=== PATIENT | female | born 1940 | race Caucasian/White ===

== ENCOUNTER → 2020-09-25 | Outpatient (CLI) | payer OTHER | LOC: HYPER 10:25 | PROVIDERS: ATTEND Emergency Medicine | DX: S81.852A Open bite, left lower leg, initial encounter (principal); S81.832A Puncture wound without foreign body, left lower leg, initial encounter; D64.9 Anemia, unspecified; M81.0 Age-related osteoporosis without current pathological fracture; M35.00 Sjogren syndrome, unspecified; G61.0 Guillain-Barre syndrome; M50.021 Cervical disc disorder at C4-C5 level with myelopathy; M50.022 Cervical disc disorder at C5-C6 level with myelopathy; E21.3 Hyperparathyroidism, unspecified; N18.32 Chronic kidney disease, stage 3b; I50.9 Heart failure, unspecified; M19.90 Unspecified osteoarthritis, unspecified site; Z98.49 Cataract extraction status, unspecified eye; Z98.890 Other specified postprocedural states; W54.0XXA Bitten by dog, initial encounter; Z79.899 Other long term (current) drug therapy; Y93.89 Activity, other specified; Y92.89 Other specified places as the place of occurrence of the external cause; Y99.8 Other external cause status ==

== ENCOUNTER → 2020-09-25 | Outpatient (CLI) | payer OTHER, MEDICARE | LOC: SJCVCIMAG 10:36 | PROVIDERS: ATTEND Emergency Medicine | DX: I70.203 Unspecified atherosclerosis of native arteries of extremities, bilateral legs (principal); L97.829 Non-pressure chronic ulcer of other part of left lower leg with unspecified severity; M79.605 Pain in left leg; M79.604 Pain in right leg ==

== ENCOUNTER → 2020-09-30 | Outpatient (CLI) | payer OTHER | LOC: HYPER 09:21 | PROVIDERS: ATTEND Emergency Medicine | DX: S81.832D Puncture wound without foreign body, left lower leg, subsequent encounter (principal); M81.0 Age-related osteoporosis without current pathological fracture; M35.00 Sjogren syndrome, unspecified; G61.0 Guillain-Barre syndrome; I50.9 Heart failure, unspecified; N18.32 Chronic kidney disease, stage 3b; D64.9 Anemia, unspecified; M50.321 Other cervical disc degeneration at C4-C5 level; M50.322 Other cervical disc degeneration at C5-C6 level; M50.323 Other cervical disc degeneration at C6-C7 level; E21.3 Hyperparathyroidism, unspecified; Z98.49 Cataract extraction status, unspecified eye; Z98.890 Other specified postprocedural states; Z79.899 Other long term (current) drug therapy; W54.0XXD Bitten by dog, subsequent encounter ==

== ENCOUNTER → 2020-09-30 | Outpatient (CLI) | payer OTHER, MEDICARE | LOC: SJCVC 11:27 | PROVIDERS: ATTEND Nuclear Medicine Nuclear Cardiology | DX: I73.9 Peripheral vascular disease, unspecified (principal); L97.909 Non-pressure chronic ulcer of unspecified part of unspecified lower leg with unspecified severity; E78.00 Pure hypercholesterolemia, unspecified; I10 Essential (primary) hypertension; I25.10 Atherosclerotic heart disease of native coronary artery without angina pectoris; K21.9 Gastro-esophageal reflux disease without esophagitis; I25.2 Old myocardial infarction; I42.9 Cardiomyopathy, unspecified; Z88.8 Allergy status to other drugs, medicaments and biological substances; Z79.899 Other long term (current) drug therapy; Z82.49 Family history of ischemic heart disease and other diseases of the circulatory system ==

== ENCOUNTER → 2020-10-14 | Outpatient (CLI) | payer OTHER, MEDICARE | LOC: HYPER 08:24 | PROVIDERS: ATTEND Emergency Medicine | DX: S81.832D Puncture wound without foreign body, left lower leg, subsequent encounter (principal); M81.0 Age-related osteoporosis without current pathological fracture; M35.00 Sjogren syndrome, unspecified; G61.0 Guillain-Barre syndrome; I50.9 Heart failure, unspecified; N18.32 Chronic kidney disease, stage 3b; D64.9 Anemia, unspecified; M50.321 Other cervical disc degeneration at C4-C5 level; M50.322 Other cervical disc degeneration at C5-C6 level; M50.323 Other cervical disc degeneration at C6-C7 level; E21.3 Hyperparathyroidism, unspecified; Z98.49 Cataract extraction status, unspecified eye; W54.0XXD Bitten by dog, subsequent encounter ==

== ENCOUNTER → 2020-10-28 | Outpatient (CLI) | payer OTHER, MEDICARE | LOC: HYPER 08:14 | PROVIDERS: ATTEND Emergency Medicine | DX: S81.832D Puncture wound without foreign body, left lower leg, subsequent encounter (principal); S81.852D Open bite, left lower leg, subsequent encounter; M81.0 Age-related osteoporosis without current pathological fracture; M35.00 Sjogren syndrome, unspecified; G61.0 Guillain-Barre syndrome; R60.0 Localized edema; I50.9 Heart failure, unspecified; N18.32 Chronic kidney disease, stage 3b; D64.9 Anemia, unspecified; M50.321 Other cervical disc degeneration at C4-C5 level; M50.322 Other cervical disc degeneration at C5-C6 level; M50.323 Other cervical disc degeneration at C6-C7 level; E21.3 Hyperparathyroidism, unspecified; Z98.49 Cataract extraction status, unspecified eye; W54.0XXD Bitten by dog, subsequent encounter ==

== ENCOUNTER → 2020-11-04 | Outpatient (CLI) | payer OTHER, MEDICARE ==
[~2020-11-04] VITALS: Ht 157.5 cm; Wt 41.5 kg
[~2020-11-04] MED LIST: ACETAMINOPHEN500 M1 PO; ALLOPURINOL 10100 M3 PO; ARTIFICIAL TEAR15 M2 OPHTHALMIC; CARVEDILOL6.25 M1 PO; CLOPIDOGREL75 MG PO; DOXYCYCLINE 10100 M2 PO; LIPITOR10 MG PO; LISINOPRIL2.5 MG PO; NEURONTIN100 MG PO; PROTONIX40 M2 PO; VITAMIN B COMP1 EACH PO; VITAMIN D325 MC5 PO
[2020-11-04 07:27] LABS: HEMATOCRIT 31.2 % (37.0-47.0); HEMOGLOBIN 10.2 gm/dL (12.0-15.0); MCH 31.1 pg (26.0-34.0); MCHC 32.8 g/dL (28.0-37.0); MCV 95.1 fL (80.0-100.0); RBC 3.28 mil/uL (4.20-5.00); RDW 14.2 % (10.5-14.5); WBC 8.6 thou/uL (4.0-11.0)
[2020-11-04 07:33] LABS: CALCIUM 9.2 mg/dL (8.5-10.1); CREATININE 1.8 mg/dL (0.6-1.0); POTASSIUM 4.4 mmol/L (3.5-5.1)
[2020-11-04 07:51] VITALS: BP 135/63
== END | disposition home or self-care (01) ==
LOC: CATH 11-02 07:32
PROVIDERS: ATTEND Nuclear Medicine Nuclear Cardiology
DX: I70.248 Atherosclerosis of native arteries of left leg with ulceration of other part of lower leg (principal); L97.929 Non-pressure chronic ulcer of unspecified part of left lower leg with unspecified severity; I70.1 Atherosclerosis of renal artery; I25.10 Atherosclerotic heart disease of native coronary artery without angina pectoris; I13.0 Hypertensive heart and chronic kidney disease with heart failure and stage 1 through stage 4 chronic kidney disease, or unspecified chronic kidney disease; I50.32 Chronic diastolic (congestive) heart failure; N18.9 Chronic kidney disease, unspecified; E78.00 Pure hypercholesterolemia, unspecified; I25.2 Old myocardial infarction; I42.9 Cardiomyopathy, unspecified; K21.9 Gastro-esophageal reflux disease without esophagitis; Z98.890 Other specified postprocedural states; Z79.899 Other long term (current) drug therapy; Z90.49 Acquired absence of other specified parts of digestive tract; Z88.2 Allergy status to sulfonamides; Z88.8 Allergy status to other drugs, medicaments and biological substances

== ENCOUNTER → 2020-11-05 | Outpatient (CLI) | payer OTHER, MEDICARE | LOC: HYPER 08:11 | PROVIDERS: ATTEND Emergency Medicine | DX: S81.832D Puncture wound without foreign body, left lower leg, subsequent encounter (principal); R60.0 Localized edema; I50.9 Heart failure, unspecified; N18.32 Chronic kidney disease, stage 3b; D64.9 Anemia, unspecified; M19.90 Unspecified osteoarthritis, unspecified site; M81.0 Age-related osteoporosis without current pathological fracture; M35.00 Sjogren syndrome, unspecified; G61.0 Guillain-Barre syndrome; M47.812 Spondylosis without myelopathy or radiculopathy, cervical region; E21.3 Hyperparathyroidism, unspecified; Z98.49 Cataract extraction status, unspecified eye; Z98.890 Other specified postprocedural states; Z79.899 Other long term (current) drug therapy; W54.0XXD Bitten by dog, subsequent encounter ==

== ENCOUNTER → 2020-12-03 | Outpatient (CLI) | payer OTHER, MEDICARE | LOC: HYPER 07:39 | PROVIDERS: ATTEND Emergency Medicine | DX: S81.832D Puncture wound without foreign body, left lower leg, subsequent encounter (principal); M19.90 Unspecified osteoarthritis, unspecified site; R60.0 Localized edema; I50.9 Heart failure, unspecified; N18.32 Chronic kidney disease, stage 3b; D64.9 Anemia, unspecified; M81.0 Age-related osteoporosis without current pathological fracture; M35.00 Sjogren syndrome, unspecified; G61.0 Guillain-Barre syndrome; M50.30 Other cervical disc degeneration, unspecified cervical region; E21.3 Hyperparathyroidism, unspecified; Z98.49 Cataract extraction status, unspecified eye; Z98.890 Other specified postprocedural states; Z79.899 Other long term (current) drug therapy; W54.0XXD Bitten by dog, subsequent encounter ==

== ENCOUNTER → 2020-12-10 | Outpatient (CLI) | payer OTHER, MEDICARE | LOC: HYPER 08:15 | PROVIDERS: ATTEND Emergency Medicine | DX: S81.832D Puncture wound without foreign body, left lower leg, subsequent encounter (principal); M19.90 Unspecified osteoarthritis, unspecified site; R60.0 Localized edema; I50.9 Heart failure, unspecified; N18.32 Chronic kidney disease, stage 3b; D64.9 Anemia, unspecified; M81.0 Age-related osteoporosis without current pathological fracture; M35.00 Sjogren syndrome, unspecified; G61.0 Guillain-Barre syndrome; M50.30 Other cervical disc degeneration, unspecified cervical region; E21.3 Hyperparathyroidism, unspecified; Z98.49 Cataract extraction status, unspecified eye; W54.0XXD Bitten by dog, subsequent encounter ==

== ENCOUNTER → 2020-12-17 | Outpatient (CLI) | payer OTHER, MEDICARE | LOC: HYPER 09:58 | PROVIDERS: ATTEND Emergency Medicine | DX: S81.832D Puncture wound without foreign body, left lower leg, subsequent encounter (principal); R60.0 Localized edema; M19.90 Unspecified osteoarthritis, unspecified site; M81.0 Age-related osteoporosis without current pathological fracture; M35.00 Sjogren syndrome, unspecified; G61.0 Guillain-Barre syndrome; M50.322 Other cervical disc degeneration at C5-C6 level; E21.3 Hyperparathyroidism, unspecified; I50.9 Heart failure, unspecified; N18.32 Chronic kidney disease, stage 3b; D64.9 Anemia, unspecified; Z98.49 Cataract extraction status, unspecified eye; Z98.890 Other specified postprocedural states; Z79.899 Other long term (current) drug therapy; W54.0XXD Bitten by dog, subsequent encounter ==

== ENCOUNTER → 2020-12-22 | Outpatient (CLI) | payer OTHER, MEDICARE | LOC: HYPER 13:25 | PROVIDERS: ATTEND Emergency Medicine | DX: S81.832D Puncture wound without foreign body, left lower leg, subsequent encounter (principal); S81.852D Open bite, left lower leg, subsequent encounter; R60.0 Localized edema; G61.0 Guillain-Barre syndrome; E21.3 Hyperparathyroidism, unspecified; I50.9 Heart failure, unspecified; N18.32 Chronic kidney disease, stage 3b; D64.9 Anemia, unspecified; M19.90 Unspecified osteoarthritis, unspecified site; M81.0 Age-related osteoporosis without current pathological fracture; M35.00 Sjogren syndrome, unspecified; M50.322 Other cervical disc degeneration at C5-C6 level; Z98.49 Cataract extraction status, unspecified eye; W54.0XXD Bitten by dog, subsequent encounter ==

== ENCOUNTER → 2021-01-12 | Outpatient (CLI) | payer OTHER, MEDICARE | LOC: HYPER 10:17 | PROVIDERS: ATTEND Emergency Medicine | DX: S81.832D Puncture wound without foreign body, left lower leg, subsequent encounter (principal); R60.0 Localized edema; N18.32 Chronic kidney disease, stage 3b; D64.9 Anemia, unspecified; M81.0 Age-related osteoporosis without current pathological fracture; M35.00 Sjogren syndrome, unspecified; G61.0 Guillain-Barre syndrome; M50.321 Other cervical disc degeneration at C4-C5 level; M50.322 Other cervical disc degeneration at C5-C6 level; E21.3 Hyperparathyroidism, unspecified; I50.9 Heart failure, unspecified; Z98.49 Cataract extraction status, unspecified eye; Z98.890 Other specified postprocedural states; Z79.899 Other long term (current) drug therapy; W54.0XXD Bitten by dog, subsequent encounter ==

== ENCOUNTER → 2021-01-26 | Outpatient (CLI) | payer OTHER, MEDICARE | LOC: HYPER 12:41 | PROVIDERS: ATTEND Emergency Medicine | DX: S81.832D Puncture wound without foreign body, left lower leg, subsequent encounter (principal); R60.0 Localized edema; N18.32 Chronic kidney disease, stage 3b; D64.9 Anemia, unspecified; M81.0 Age-related osteoporosis without current pathological fracture; M35.00 Sjogren syndrome, unspecified; G61.0 Guillain-Barre syndrome; M50.321 Other cervical disc degeneration at C4-C5 level; M50.322 Other cervical disc degeneration at C5-C6 level; E21.3 Hyperparathyroidism, unspecified; I50.9 Heart failure, unspecified; Z98.49 Cataract extraction status, unspecified eye; W54.0XXD Bitten by dog, subsequent encounter ==

== ENCOUNTER → 2021-02-03 | Outpatient (CLI) | payer OTHER, MEDICARE | LOC: HYPER 10:17 | PROVIDERS: ATTEND Emergency Medicine | DX: S81.832D Puncture wound without foreign body, left lower leg, subsequent encounter (principal); R60.0 Localized edema; N18.32 Chronic kidney disease, stage 3b; D64.9 Anemia, unspecified; M19.90 Unspecified osteoarthritis, unspecified site; M81.0 Age-related osteoporosis without current pathological fracture; M35.00 Sjogren syndrome, unspecified; G61.0 Guillain-Barre syndrome; E21.3 Hyperparathyroidism, unspecified; M50.322 Other cervical disc degeneration at C5-C6 level; M50.321 Other cervical disc degeneration at C4-C5 level; I50.9 Heart failure, unspecified; Z98.49 Cataract extraction status, unspecified eye; Z98.890 Other specified postprocedural states; Z79.899 Other long term (current) drug therapy; W54.0XXD Bitten by dog, subsequent encounter ==

== ENCOUNTER → 2021-02-17 | Outpatient (CLI) | payer OTHER, MEDICARE | LOC: HYPER 08:22 | PROVIDERS: ATTEND Emergency Medicine | DX: S81.852D Open bite, left lower leg, subsequent encounter (principal); S81.832D Puncture wound without foreign body, left lower leg, subsequent encounter; L84 Corns and callosities; R60.0 Localized edema; N18.32 Chronic kidney disease, stage 3b; I50.9 Heart failure, unspecified; D64.9 Anemia, unspecified; G61.0 Guillain-Barre syndrome; E21.3 Hyperparathyroidism, unspecified; M19.90 Unspecified osteoarthritis, unspecified site; M81.0 Age-related osteoporosis without current pathological fracture; M35.00 Sjogren syndrome, unspecified; M50.322 Other cervical disc degeneration at C5-C6 level; M50.321 Other cervical disc degeneration at C4-C5 level; Z98.49 Cataract extraction status, unspecified eye; W54.0XXD Bitten by dog, subsequent encounter ==